=== PATIENT | male | born 1960 | race Asian ===

== ENCOUNTER 2020-01-24 09:10 | Emergency (ER) | payer OTHER ==
[~2020-01-24] VITALS: Ht 167.6 cm; Wt 67.2 kg
[2020-01-24 09:23] VITALS: Ht 167.6 cm; Wt 67.2 kg
[2020-01-24 11:35] VITALS: BP 149/86
== END 2020-01-24 11:35 | disposition home or self-care (01) ==
LOC: ED 09:10
DX: M54.5 Low back pain (principal)
CPT/HCPCS: J1885

== ENCOUNTER 2020-04-07 08:36 | Inpatient (IN) | payer OTHER ==
[~2020-04-07] VITALS: Ht 167.6 cm; Wt 63.5 kg
--- NOTE | 2020-04-07 09:05 | NUR ---
PT ARRIVED TO ED WITH C/O RIGHT CLAVICULAR/SHOULDER PAIN. PT STATES FELL IN KITCHEN YESTERDAY. PT UNABLE TO RECALL REASON FOR FALL BUT STATES THAT FOUND HIM ON THE FLOOR. PT STATES "I MIGHT HAVE PASSED OUT". SWELLING NOTED TO RIGHT CLAVICLE, PAIN WITH PALPATION, DISCOLORATION/ECCYMOSIS NOTED TO RIGHT CLAVICLE. PT UNABLE TO MOVE RIGHT ARM D/T RIGHT CLAVICULAR/SHOULDER PAIN. PT ABLE TO MOVE RIGHT HAND AND FINGERS. SKIN COLOR TO RIGHT ARM IS NORMAL. PT SEEMS TO BE AOX4, CHANGED INTO GOWN. WILL CONTINUE TO MONITOR
--- NOTE | 2020-04-07 09:08 | NUR ---
XRAY AT BEDSIDE
--- NOTE | 2020-04-07 09:44 | NUR ---
PT TAKEN TO CT VIA WHEELCHAIR
[2020-04-07 09:56] LABS: BASOPHIL % 0.5 % (0.2-1.5); PLATELET COUNT 293 x10^3mcL (152-348); RED CELL DISTRIBUTION WIDTH 12.8 % (12.1-16.2)
[2020-04-07 10:09] LABS: ALBUMIN 4.3 g/dL (3.4-5.0); ALKALINE PHOSPHATASE 90 U/L (46-116); ALT/SGPT 42 U/L (16-63); AST/SGOT 21 U/L (15-37); CALCIUM 9.3 mg/dL (8.5-10.1); CHLORIDE SERUM 101 mmol/L (98-107); CREATININE SERUM 0.9 mg/dL (0.7-1.3); GFR1 > 60 mL/min; GLUCOSE SERUM 133 mg/dL (74-106); LIPASE 193 IU/L (73-393); MAGNESIUM 2.2 mg/dL (1.8-2.4); POTASSIUM SERUM 3.6 mmol/L (3.5-5.1); SODIUM SERUM 138 mmol/L (136-145); T4(THYROXINE) 5.7 ug/dL (4.7-13.3)
[2020-04-07 10:15] LABS: AMPHETAMINE QUAL UR NONE DETECTED (See below)
[2020-04-07 10:21] LABS: BILIRUBIN TOTAL 0.71 mg/dL (0.20-1.00); CARBON DIOXIDE 27.7 mmol/L (21-32); HDL CHOLESTEROL 45 mg/dL (40-60); TOTAL PROTEIN, SERUM 8.1 g/dL (6.4-8.2)
[2020-04-07 10:22] LABS: CHOLESTEROL 278 mg/dL (<200)
[2020-04-07 12:01] LABS: UA SPECIFIC GRAVITY >=1.030 (1.005-1.035); microscopic required? YES; urine erythrocyte NEGATIVE (NEGATIVE)
--- NOTE | 2020-04-07 13:01 | NUR ---
PT SITTING ON SIDE OF BED WITH SLING ON. PT STATES PAIN HAS IMPROVED AND IS 5/10 AT THIS TIME. PT APPEARS TO BE IN NO ACUTE DISTRESS AT THIS TIME. WILL CONTINUE TO MONITOR
--- NOTE | 2020-04-07 13:40 | NUR ---
PT TAKEN TO XRAY VIA WHEELCHAIR
--- NOTE | 2020-04-07 13:45 | NUR ---
RECIEVED PT FOR ADMITION TO THE TELE/MED SURGE FLOOR. PT CAME IN A GURNEY. PT A/O X4. PT HAS S/L ON LEFT WRIST 20G FLUSHED AND INTACT. VITALS ARE STABLE. BILAT CLEAR LUNG SOUNDS O2SAT 100% RA. (+) BOWEL SOUNDS, LAST BM 04/07/20. PT VOIDS. PT AMBULATORY. SKIN INTACT. PT DENIES ANY PAIN AT THIS TIME. PT ON TELE# 7 NSR. CALL LIGHT WITHIN REACH, BED LOCKED AND AT LOWEST POSTION.
--- NOTE | 2020-04-07 15:01 | NUR ---
CALLED AND GAVE REPORT TO CARLA ACKERMAN
[2020-04-07 16:17] VITALS: BP 151/80
--- NOTE | 2020-04-07 18:52 | NUR ---
SPOKE TO PATIENT ABOUT CARE PLAN. PT A/O X 4. PT DENIES ANY DISTRESS/PAIN AT THIS TIME. PT'S VITALS ARE STABLE. PT IS AMBULATORY. PT IS CALM AND COOPERATIVE. CALL LIGHT WITHIN REACH, BED LOCKED AND AT LOWEST POSTION. WILL FORWARD CARE TO INCOMING SHIFT NURSE.
[2020-04-07 19:38] VITALS: BP 141/85
[2020-04-08 05:14] VITALS: BP 104/63
--- NOTE | 2020-04-08 06:17 | NUR ---
Pt received in bed AOX4 with respiratory rate and effort even and unlabored mariely. Pt denied pain at time of assessment. No s/s of ETOH withdrawal noted. Therapeutic interventions implemented as per MD order, comfort and safety measures maintained.
[2020-04-08 07:04] LABS: BASOPHIL % 0.5 % (0.2-1.5); PLATELET COUNT 231 x10^3mcL (152-348); RED CELL DISTRIBUTION WIDTH 12.4 % (12.1-16.2)
[2020-04-08 07:34] LABS: CARBON DIOXIDE 27.6 mmol/L (21-32); CHLORIDE SERUM 107 mmol/L (98-107); CREATININE SERUM 0.7 mg/dL (0.7-1.3); GFR1 > 60 mL/min; GLUCOSE SERUM 104 mg/dL (74-106); HDL CHOLESTEROL 35 mg/dL (40-60); PHOSPHOROUS 2.5 mg/dL (2.5-4.9); SODIUM SERUM 141 mmol/L (136-145)
[2020-04-08 07:50] LABS: CHOLESTEROL 205 mg/dL (<200); CHOLESTEROL/HDL RATIO 5.9; POTASSIUM SERUM 2.9 mmol/L (3.5-5.1); TRIGLYCERIDES 202 mg/dL (<150)
--- NOTE | 2020-04-08 08:00 | NUR ---
RECEIVED PT FROM NIGHT NURSE. REPORTS NO PAIN AT REST, ON UPON MOVEMENT TO AFFECTED UE. SCHEDULED FOR ORIF PROCEDURE. WILL OBTAIN CONSENT AND COMPLETE CHECKLIST. NO EMERGENT ISSUES. PT STABLE WITH NO ACUTE DISTRESS. WILL CONTINUE TO MONITOR.
[2020-04-08 08:58] VITALS: BP 139/88
--- NOTE | 2020-04-08 14:33 | NUR ---
PT TAKEN FOR ORIF PROCEDURE.
[2020-04-08 18:53] VITALS: Ht 167.6 cm; Wt 63.5 kg
--- NOTE | 2020-04-08 19:30 | NUR ---
PT RETURNED FROM SURGERY @1845. DENIES PAIN. REINITIATED K+ REPLACEMENT THERAPY VIA IV IN R HAND. C/O PAIN IN LEFT EXTREMITY. IV SITES APPEAR PATENT BUT NEW ACCESS WAS INITIATED D/T K+ INFUSION AND RISK FOR EXTRAVASATION. MAY BE INTACT AND WNL. REPORTS FLATUS SINCE SURGERY. BOWEL SOUNDS PRESENT X4. RESUMING REGULAR DIET. ENDORSED CARE TO NIGHT NURSE.
[2020-04-08 20:31] VITALS: BP 114/74
--- NOTE | 2020-04-08 21:18 | NUR ---
Pt received in bed s/p Rt shoulder ORIF, dressing to site CDI, + pulse noted with + circulation. Pt denies numbess/tingling, full sensation reported with strong straw baler noted. Pt up to chair and voiding. Education on post/op care reinforced, comfort and safety measures maintained.
--- NOTE | 2020-04-08 21:31 | NUR ---
CIWA assessment completed with no s/s of ETOH withdrawal noted.
[2020-04-09 06:21] VITALS: BP 123/79
--- NOTE | 2020-04-09 07:13 | NUR ---
pT CURRENTLY STABLE WITH NO S/S OF ACUTE DISTRESS NOTED. COMFORT AND SAFETY MEASURES MAINTAINED
[2020-04-09 07:56] LABS: BASOPHIL % 0.2 % (0.2-1.5); PLATELET COUNT 219 x10^3mcL (152-348); RED CELL DISTRIBUTION WIDTH 12.4 % (12.1-16.2)
[2020-04-09 08:36] LABS: CALCIUM 8.1 mg/dL (8.5-10.1); CARBON DIOXIDE 26.3 mmol/L (21-32); CHLORIDE SERUM 103 mmol/L (98-107); CREATININE SERUM 0.7 mg/dL (0.7-1.3); GFR1 > 60 mL/min; GLUCOSE SERUM 122 mg/dL (74-106); MAGNESIUM 1.9 mg/dL (1.8-2.4); PHOSPHOROUS 3.1 mg/dL (2.5-4.9); POTASSIUM SERUM 3.2 mmol/L (3.5-5.1); SODIUM SERUM 136 mmol/L (136-145)
[2020-04-09 08:50] VITALS: BP 128/77
--- NOTE | 2020-04-09 11:23 | NUR ---
PATIENT ALERT AND ORIENTED. UP IN CHAIR. SHOULDER PAIN 12/08, NORCO GIVEN WITH GOOD RESULTS. IVF INFUSING. [employer] STARKS
[2020-04-09 12:20] VITALS: BP 124/77
[2020-04-09 14:05] VITALS: BP 124/77
== END 2020-04-09 14:28 | disposition home or self-care (01) | DRG 494 ==
LOC: ED 08:36 → DU 11:50
PROVIDERS: Emergency Medicine; Orthopaedic Surgery; ADMIT Hospitalist; ATTEND Hospitalist
PROC: 0PSC04Z Reposition Right Humeral Head with Internal Fixation Device, Open Approach (ICD-10-PCS; principal; 2020-04-08 14:30)
DX: S42.001A Fracture of unspecified part of right clavicle, initial encounter for closed fracture (principal); W18.39XA Other fall on same level, initial encounter; Y93.89 Activity, other specified; Y92.89 Other specified places as the place of occurrence of the external cause; Y99.8 Other external cause status; F17.210 Nicotine dependence, cigarettes, uncomplicated; F10.20 Alcohol dependence, uncomplicated; Y90.9 Presence of alcohol in blood, level not specified; Z20.822 Contact with and (suspected) exposure to COVID-19; Z98.42 Cataract extraction status, left eye; Z98.41 Cataract extraction status, right eye; Z80.0 Family history of malignant neoplasm of digestive organs
CPT/HCPCS: 76001; 82962; 83880; G0378; G0480; J0131; J0690; J2001; J2250; J2405; J3010; J3480; J3490; J7030; U0003